=== PATIENT | female | born 1960 | race Caucasian/White ===

== ENCOUNTER 2020-08-27 14:27 | Outpatient (REF) | payer OTHER, SELFPAY ==
[2020-08-27 15:30] LABS: MANUAL DIFF FLAG NO
[2020-08-27 15:31] LABS: Basophils Percent Auto 0.4 % (0-2); Eosinophils Absolute Auto 0.1 X10*3/uL (0.0-0.4); Eosinophils Percent Auto 1.8 % (0-4); Hematocrit 38.1 % (37-47); Hemoglobin 12.5 g/dl (12.0-16.0); Imm Gran Abs Auto 0.02 X10*3/uL (0.00-0.03); Imm Gran Pct Auto 0.3 % (0.0-0.4); Lymphocytes Absolute Auto 2.3 X10*3/uL (1.2-4.9); Lymphocytes Percent Auto 32.7 % (20-40); Mean Corpuscular HGB Conc 32.8 g/dl (31.0-35.0); Mean Corpuscular Hemoglobin 30.9 pg (27.0-33.0); Mean Corpuscular Volume 94.3 fL (80-98); Mean Platelet Volume 10.8 fL (9.4-12.3); Monocytes Absolute Auto 0.6 X10*3/uL (0.1-1.2); Monocytes Percent Auto 8.3 % (2-11); Neutrophils Percent Auto 56.5 % (45-73); Platelet Count 238 X10*3/uL (160-400); Red Blood Count 4.04 X10*6/uL (4.20-5.50); Red Cell Distribution Width 12.8 % (11.0-16.0); White Blood Count 7.1 X10*3/uL (4.8-10.8)
[2020-08-27 15:32] LABS: Appearance Urine CLEAR; Color Urine YELLOW; Glucose Urine UA NEG (NEG); Leukocyte Esterase Urine NEG (NEG); Nitrite Urine NEG (NEG); PH 6.5 (5.0-8.0); Urine Blood NEG (NEG); Urine Ketones NEG (NEG); Urine Protein NEG (NEG-TRACE)
[2020-08-27 16:02] LABS: Anion Gap 9 (12-20); Blood Urea Nitrogen 21 mg/dL (9-16); Calcium 8.9 mg/dL (8.4-10.2); Carbon Dioxide 30 mmol/L (22-29); Chloride 104 mmol/L (96-108); Estimated Glomerular Filt Rate > 60; Glucose Random 78 mg/dL (60-115); Potassium 4.8 mmol/l (3.3-5.1); Sodium 138 mmol/L (135-145)
== END 2020-08-27 14:28 | disposition home or self-care (01) ==
LOC: HO.LAB 14:27
PROVIDERS: PCP Internal Medicine; Visit Provider Internal Medicine
DX: Z00.00 Encounter for general adult medical examination without abnormal findings (principal); R51.9 Headache, unspecified; N39.0 Urinary tract infection, site not specified; R10.9 Unspecified abdominal pain
CPT/HCPCS: 36415; 80048; 81003; 85025

== ENCOUNTER 2020-09-24 14:16 | Outpatient (REF) | payer OTHER, SELFPAY ==
[2020-09-24 14:33] LABS: COVID-19 Test Negative (Negative)
== END 2020-09-24 14:17 | disposition home or self-care (01) ==
LOC: HO.EMPCOV 14:16
PROVIDERS: Visit Provider Internal Medicine
DX: Z20.822 Contact with and (suspected) exposure to COVID-19 (principal)
CPT/HCPCS: 36415; 87635; C9803

== ENCOUNTER 2020-10-05 00:18 | Emergency (ER) | payer OTHER, SELFPAY ==
--- NOTE | ~2020-10-05 | CT_ITS ---
EXAMINATION: CT SOFT TISSUE NECK WITHOUT CONTRAST CLINICAL INFORMATION: Throat pain. COMPARISON: None TECHNIQUE: Helical imaging was performed in the axial plane with generation of coronal and sagittal reformatted images. This CT examination was performed using dose optimization techniques as appropriate, variously including the following: *Automated exposure control *Adjustment of mA and/or kV according to patient size (this includes techniques or standardized protocols for targeted exams where dose is matched to indication/reason for exam; i.e. extremities or head) *Use of iterative reconstruction technique DLP: 484 mGy-cm FINDINGS: Please note that this examination is extremely limited as no IV contrast was administered. No cervical adenopathy is identified. The parotid glands are homogeneous in attenuation. The submandibular glands are normal. No contour abnormality or pathologic enhancement is seen within the oral cavity or pharyngeal mucosal space. The laryngeal structures are normal. The parapharyngeal fat is preserved. The carotid sheath vasculature opacify normally. No extra mucosal soft tissue mass or fluid collection is seen. No retropharyngeal fluid collection is seen. The thyroid gland is normal. The superior mediastinum is unremarkable. The lung apices are clear. The mastoid air cells and visualized portions of the paranasal sinuses are well-aerated. The temporomandibular joints are normal. No periapical disease is identified. No osseous abnormalities are seen. The imaged portions of the brain parenchyma are unremarkable. There is mild disc height loss at C5/C6 and C6/C7 with mild anterior osteophyte formation. There are no demonstrable radiopaque foreign bodies. CT/CT soft tissue neck wo con IMPRESSION: Significantly limited study due to the lack of IV contrast. Please note that evaluation for inflammatory and infectious processes is significantly limited without IV contrast. No acute abnormalities are demonstrable, however. Specifically, there is no suggestion of prevertebral soft tissue swelling or retropharyngeal collection.
[2020-10-05 00:21] VITALS: BP 175/81; PULSE 71; RESP 18; TEMP 36.6; O2SAT 99; BMI 27.4
--- NOTE | 2020-10-05 01:28 | ED.URI ---
HPI - URI/Sore Throat General Chief Complaint: General Medical Stated Complaint: Sore throat Time Seen by Provider: 10/05/20 01:06 Source: patient Mode of arrival: ambulatory Limitations: no limitations History of Present Illness HPI Narrative: Patient been complaining of sore throat for last 2 weeks had COVID testing done on 09/24 was negative seen her PCP for give her amoxicillin and then took the course of Zithromax which is she still taking and still feeling pain in the throat feels pain feels pain when she swallows no fever no chills no change in voice no shortness of breath Related Data Previous Rx's Medication Instructions Recorded valacyclovir 1 gram tablet 1,000 mg PO Q8H 7 Days #21 tab 08/27/20 lidocaine 5 % topical ointment 1 appl TOPICAL BEDTIME #120 g 09/02/20 Allergies Allergy/AdvReac Type Severity Reaction Status Date / Time No Known Allergies Allergy Verified 08/27/20 10:57 Review of Systems Review of Systems: Yes all other systems are reviewed and are negative PMFSH Past Medical History Medical History Rotator cuff arthropathy of right shoulder Surgical History History of partial hysterectomy Family History Family History Mother No problems noted. Father No problems noted. Social History Social History Alcohol intake: never Smoking Status: Never smoker Use of substances other than those prescribed or required for medical reasons: No Advance Directives: No Advance Directives Information Provided: No Physical Exam Vital Signs: Vital Signs: Last Vital Signs Temp 97.8 F 10/05/20 00:21 Pulse 71 10/05/20 00:21 Resp 18 10/05/20 00:21 BP 175/81 H 10/05/20 00:21 Pulse Ox 99 10/05/20 00:21 Body Mass Index 27.4 Const: General: healthy appearing, comfortable and no acute distress Orientation/consciousness: patient oriented x3 HENMT: Head: Yes normal to inspection Ears: hearing grossly normal bilaterally, external ears normal and TM's normal bilaterally General nose exam: Normal external nose present Face and sinus: Yes normal facial exam Mouth: Normal oral and palatal mucosa present, oropharynx normal and moist mucous membranes Neck: Neck: Yes normal visual inspection, Yes full ROM, Yes no lymphadenopathy and Yes no JVD Thyroid: Thyroid normal Chest: Chest palpation & inspection: normal palpation of entire chest wall Resp: Effort & Inspection: normal respiratory effort Auscultation: clear to auscultation bilaterally, no crackles and no rales Cardio: Palpation: normal PMI Rate: regular rate Rhythm: regular rhythm Heart sounds: S1 normal heart sound present and S2 normal heart sound present GI: Inspection: Yes normal to inspection Palpation (GI): Soft to palpation and nontender Neuro: General: patient oriented x3 and no focal motor deficits Extrem: General: Yes normal to inspection, Yes no calf tenderness and No pedal edema Course Course Course Narrative: CT scan negative for any acute pathology patient advised to follow-up with ENT specialist MDM - URI/Sore Throat MDM Narrative Medical decision making narrative: Patient with sore throat clinically no signs of infection taken the course of antibiotic already rapid strep is negative patient still feel pain in the throat very anxious explain her that she need ENT evaluation will do CT scan to rule out any mass although very unlikely Differential Diagnosis Differential diagnosis: Likely upper respiratory infection Lab Data Attestation: I reviewed the patient's lab results. Labs: Lab Results 10/05/20 Range/Units 01:11 COVID-19 ([facility]) Negative (Negative) COVID-19 Clin Com See Note Discharge Plan Discharge Clinical Impression: Sore throat (viral) Patient Disposition: Home, Self-Care Instructions: Strep Throat (ED) Additional Instructions: Follow-up with ENT for further evaluation at this time there is no signs of infection Saline gargles Continue your Prilosec daily and keep your head elevated when you sleep Prescriptions: No Action valacyclovir 1 gram tablet 1,000 mg PO Q8H 7 Days Qty: 21 RF: 0 lidocaine 5 % ointment 1 appl topical BEDTIME Qty: 120 RF: 0 Referrals: Markel Perera [Physician] - 1 week Interventions: ED Discharge Assessment Last Done: 10/05/20 03:06 Discharge Date/Time: 10/05/20 03:06 Print Language: Slovak
[2020-10-05 01:34] LABS: COVID-19 Test Negative (Negative); IDNOW Serial# 9DD0AD1C
[2020-10-05] MEDS: Magnesium Hydrox/Alum Hydrox 30 ML ORAL.SUSP PO (02:16)
[2020-10-05] MEDS: Lidocaine HCl Viscous 2 % 15 ML SOLUTION MUCOUS MEM (02:16)
== END 2020-10-05 03:06 | disposition home or self-care (01) ==
PROVIDERS: Emergency Provider Internal Medicine; PCP Internal Medicine
DX: J02.9 Acute pharyngitis, unspecified (principal); Z20.822 Contact with and (suspected) exposure to COVID-19
CPT/HCPCS: 36415; 70490; 87071; 87635; 87880; 99284

== ENCOUNTER 2020-10-10 09:46 | Outpatient (REF) | payer OTHER, SELFPAY ==
--- NOTE | ~2020-10-10 | FL_ITS ---
EXAMINATION: FL BARIUM SWALLOW CLINICAL INFORMATION: Dysphagia. Reflux. COMPARISON: None TECHNIQUE: Barium swallow examination is performed using fluoroscopic evaluation in addition to multiple fluoroscopic spot views. The patient is imaged both upright and prone and using both thick and thin sulfate along with effervescent granules. Barium tablet was also administered. Fluoroscopy time: 1.8 minutes DAP: 14 Gycm2 Images: 61 FINDINGS: The swallowing mechanism is normal. No aspiration or penetration is seen. There is a prominent cricopharyngeus muscle seen making posterior impression on the lower cervical esophagus. Esophageal motility appeared normal with the patient in the upright position. There was abnormal esophageal motility with the patient in the LUO position with persistent stasis of barium in the esophagus. There is a very small sliding-type hiatal hernia. Mild gastroesophageal reflux was seen. No mass, stricture or evidence of esophagitis is seen. FL/FL barium swallow IMPRESSION: Prominent cricopharyngeus muscle. Abnormal esophageal motility with the patient in the LUO position with stasis of barium in the esophagus. Mild gastroesophageal reflux. Very small sliding-type hiatal hernia.
== END 2020-10-10 09:47 | disposition home or self-care (01) ==
LOC: HO.XRAY 09:46
PROVIDERS: Visit Provider Otolaryngology
DX: R13.10 Dysphagia, unspecified (principal); K21.9 Gastro-esophageal reflux disease without esophagitis
CPT/HCPCS: 74220

== ENCOUNTER → 2021-01-13 14:21 | Outpatient (REF) | payer OTHER, SELFPAY ==
--- NOTE | 2021-01-13 14:25 | ECG_ITS ---
Test Reason : PREOP Blood Pressure : / mmHG Vent. Rate : 066 BPM Atrial Rate : 066 BPM P-R Int : 150 ms QRS Dur : 092 ms QT Int : 396 ms P-R-T Axes : 049 047 036 degrees QTc Int : 415 ms Normal sinus rhythm Normal ECG No previous ECGs available Referred By: Wendy Nicole Electronically Signed By:MELVIN SHORE MD
== END ==
LOC: HO.CARD 14:21
PROVIDERS: PCP Internal Medicine; Visit Provider Internal Medicine
DX: Z01.818 Encounter for other preprocedural examination (principal)
CPT/HCPCS: 93005

== ENCOUNTER 2021-01-14 14:19 | Outpatient (REF) | payer OTHER, SELFPAY ==
[2021-01-14 15:02] LABS: MANUAL DIFF FLAG NO
[2021-01-14 15:06] LABS: Basophils Percent Auto 0.4 % (0-2); Eosinophils Absolute Auto 0.1 X10*3/uL (0.0-0.4); Eosinophils Percent Auto 2.1 % (0-4); Hematocrit 36.6 % (37-47); Hemoglobin 12.1 g/dl (12.0-16.0); Imm Gran Abs Auto 0.01 X10*3/uL (0.00-0.03); Imm Gran Pct Auto 0.1 % (0.0-0.4); Lymphocytes Absolute Auto 2.3 X10*3/uL (1.2-4.9); Lymphocytes Percent Auto 33.6 % (20-40); Mean Corpuscular HGB Conc 33.1 g/dl (31.0-35.0); Mean Corpuscular Hemoglobin 30.6 pg (27.0-33.0); Mean Corpuscular Volume 92.4 fL (80-98); Mean Platelet Volume 11.2 fL (9.4-12.3); Monocytes Absolute Auto 0.6 X10*3/uL (0.1-1.2); Monocytes Percent Auto 8.8 % (2-11); Neutrophils Absolute Auto 3.7 X10*3/uL (2.0-8.3); Platelet Count 228 X10*3/uL (160-400); Red Blood Count 3.96 X10*6/uL (4.20-5.50); Red Cell Distribution Width 13.4 % (11.0-16.0); White Blood Count 6.8 X10*3/uL (4.8-10.8)
[2021-01-14 15:28] LABS: Alanine Aminotransferase 16 U/L (0-31); Albumin Level 4.2 g/dL (3.5-5.0); Alkaline Phosphatase 79 U/L (39-117); Anion Gap 13 (12-20); Aspartate Amino Transferase 17 U/L (5-31); Bilirubin Total 1.3 mg/dL (0.0-1.0); Blood Urea Nitrogen 17 mg/dL (9-16); Calcium 9.3 mg/dL (8.4-10.2); Carbon Dioxide 26 mmol/L (22-29); Chloride 105 mmol/L (96-108); Estimated Glomerular Filt Rate > 60; Glucose Fasting 89 mg/dL (60-99); Potassium 4.6 mmol/L (3.3-5.1); Sodium 139 mmol/L (135-145); Total Protein 6.8 g/dL (6.5-8.0)
== END 2021-01-14 14:20 | disposition home or self-care (01) ==
LOC: HO.LAB 14:19
PROVIDERS: PCP Internal Medicine; Visit Provider Internal Medicine
DX: Z01.818 Encounter for other preprocedural examination (principal)
CPT/HCPCS: 36415; 80053; 85025

== ENCOUNTER 2021-02-02 06:09 | Day surgery (SDC) | payer OTHER, SELFPAY ==
[2021-01-20 14:07] VITALS: BMI 26.9
--- NOTE | 2021-01-28 16:33 | MHC.SHP ---
Pre-Procedural Eval Section A The patient is an INPATIENT: No The History & Physical has been completed within 30 days and I have reviewed it.: Yes Section B Chief Complaint: cataract Allergies: Allergies Allergy/AdvReac Type Severity Reaction Status Date / Time No Known Allergies Allergy Verified 01/20/21 13:52 Plan Diagnosis/Plan: Unchanged I have reviewed the history and physical and performed a pertinent physical examination on my patient. No changes have occurred unless specified.
--- NOTE | 2021-01-30 09:01 | HO.ANESPROP2 ---
Documented by User: Niru Pineda 01/30/21 09:02 HPI - Anesthesia Eval Consult details Narrative: 60yo F for Right Cataract Extraction IOL Insertion PCP Cleared No prev cataract on record PMFSH Active Problems Active Problems: All Active Problems (Updated 01/20/21 @ 13:52 by Tessa Goldberg) Flank pain (Acute) Shingles (Acute) Pre-op evaluation (Acute) Past Medical History Medical History Arthritis Back pain GERD (gastroesophageal reflux disease) Pre-op evaluation Scoliosis Family History Family History Mother Breast cancer Father Stroke Surgical History Surgical History History of foot surgery History of partial hysterectomy Hx of colonoscopy Hx of repair of right rotator cuff Hx of thumb surgery Social History Social History Are you a primary primary care pediatrician to a significant other at home: No Do you presently have visiting nurse or other home services: No Alcohol intake: never Use of substances other than those prescribed or required for medical reasons: No Have you been hit, kicked, punched, or otherwise hurt by someone within the past year? If so, by whom?: No Are you DNR?: No Advance Directives: No Advance Directives Information Provided: No Advance Directives on File: No Recently lost weight without trying: No How much weight loss: 34pounds or more Eating poorly because of decreased appetite: No Nutrition screen score: 4 Nutrition Risks: No Nutritional Risk Patient : No Meds Allergies Allergy/AdvReac Type Severity Reaction Status Date / Time No Known Allergies Allergy Verified 01/20/21 13:52 Home Medications Medication Instructions Recorded Confirmed Last Taken Type naltrexone 8 mg-bupropion 90 mg 1 tab PO QAM 01/15/21 01/20/21 Unknown History tablet,extended release omeprazole 20 mg PO DAILY PRN 01/20/21 02/02/21 02/02/21 History Exam Exam Date and Time: January 30, 2021 0901 Height,Weight and Vital Signs: Height 5 ft 6 in Weight 75.75 kg Assessment and Plan Assessment Anesthesia Assessment: Chart Reviewed Documented by User: Dexter Bustos 02/02/21 07:08 PMFSH Past Medical History Medical History Arthritis Back pain GERD (gastroesophageal reflux disease) Pre-op evaluation Scoliosis Family History Family History Mother Breast cancer Father Stroke Surgical History Surgical History History of foot surgery History of partial hysterectomy Hx of colonoscopy Hx of repair of right rotator cuff Hx of thumb surgery Social History Social History Are you a primary primary care pediatrician to a significant other at home: No Do you presently have visiting nurse or other home services: No Alcohol intake: never Use of substances other than those prescribed or required for medical reasons: No Have you been hit, kicked, punched, or otherwise hurt by someone within the past year? If so, by whom?: No Are you DNR?: No Advance Directives: No Advance Directives Information Provided: No Advance Directives on File: No Recently lost weight without trying: No How much weight loss: 34pounds or more Eating poorly because of decreased appetite: No Nutrition screen score: 4 Nutrition Risks: No Nutritional Risk Patient : No Meds Allergies Allergy/AdvReac Type Severity Reaction Status Date / Time No Known Allergies Allergy Verified 01/20/21 13:52 Home Medications Medication Instructions Recorded Confirmed Last Taken Type naltrexone 8 mg-bupropion 90 mg 1 tab PO QAM 01/15/21 01/20/21 Unknown History tablet,extended release omeprazole 20 mg PO DAILY PRN 01/20/21 02/02/21 02/02/21 History Exam Airway Mallampati Class: II TM Dist: >3cm Neck ROM: Full Loose/Missing/Broken Teeth: Yes (o missing but poor dentition) Heart: rrr+[id number] Lungs: cta b/l Assessment and Plan Assessment Anesthesia Assessment: Anesthesia Plan Discussed, PAT Visit and Chart Reviewed Final Anesthetic Review NPO: Yes ASA Class: II Final Preanesthetic Review: No Changes in Pt Med Stat, Meds/Allgs Chart Reviewed, Consent Obtained/Reviewed and Anes Risks/Benef Reviewed Patient Risk: Low Procedure Risk: Low Assessment/Block/Sedation in SS: Assess/Block/Sedation-SS Anesthetic Plan Anesthetic Plan: MAC: and Agree w/ Assess. and Plan Disposition: Standard PACU
[2021-02-02] MEDS: Tetracaine HCl/PF 0.5% Oph Sol 4 ML DROPS 1 DROP EYE-RIGHT (06:29)
[2021-02-02] MEDS: Tropicamide 1 % Ophth Sol 3 ML BTL 1 DROP EYE-RIGHT ×3 (06:30→06:35)
[2021-02-02] MEDS: Phenylephrine HCL 2.5% Oph SoL 2 ML BOTTLE 1 DROP EYE-RIGHT ×3 (06:30→06:35)
[2021-02-02 06:31] VITALS: BP 126/71; PULSE 18; RESP 69; TEMP 36.1; O2SAT 98
--- NOTE | 2021-02-02 07:02 | HO.PNOPHT ---
Ophthalmology Procedure Procedure Date of Service: 02/02/21 Ophthalmology Viscoelastic: Healannamaria Pachecot Dual Pack Pro Ophthalmology Lenses: TECVICTORINO [id number] (20) Procedure Notes: PREOPERATIVE DIAGNOSIS: Decreased visual acuity right eye secondary to cataract POSTOPERATIVE DIAGNOSIS: Same PROCEDURE: Right cataract extraction with intraocular lens insertion SURGEON: Catracho Ward M.D. ANESTHESIA: Topical/MAC ESTIMATED BLOOD LOSS: None COMPLICATIONS: None After obtaining informed consent, the patient was brought to the operating room suite and placed in the supine position. After adequate sedation per anesthesia, topical drops of Tetracaine were given to the right eye. The eye was then prepped and draped in the usual sterile fashion. The operating room microscope was then positioned over the operative eye and a lid speculum placed. A paracentesis was created. Viscoelastic was then instilled into the anterior chamber. A three plane incision was then created temporally, utilizing a 2.85 mm keratome. Capsulotomy forceps were then utilized to create a circular tear capsulotomy. Hydrodissection and hydrodelineation were carried out until adequate mobilization of the nucleus occurred. Phacoemulsification was then utilized to remove the dense central nucleus followed by removal of the cortical material utilizing the automated aspiration irrigation unit. Viscoelastic was instilled into the posterior capsular bag followed by placement of a posterior chamber intraocular lens without difficulty. The residual Viscoelastic was then removed utilizing the automated IA machine. The wound was checked and found to be watertight. The patient tolerated the procedure well and the lid speculum was removed. Intracameral injection of Vigamox 0.1 mL followed by a subtenon injection of Kenalog-40 0.2 mL were administered. The patient will be seen in the a.m.
[2021-02-02 07:56] VITALS: BP 156/91; PULSE 67; RESP 16; TEMP 36.1; O2SAT 100
== END 2021-02-02 07:59 | disposition home or self-care (01) ==
PROVIDERS: PCP Internal Medicine; Visit Provider Ophthalmology
PROC: (CPT 66985; principal; 2021-02-02 07:30)
DX: H25.11 Age-related nuclear cataract, right eye (principal); H54.7 Unspecified visual loss; Z79.899 Other long term (current) drug therapy
CPT/HCPCS: 66984; J2250; J3010; J3300; V2632

== ENCOUNTER 2021-02-11 13:40 | Outpatient (REF) | payer OTHER, SELFPAY ==
--- NOTE | ~2021-02-11 | MM_ITS ---
EXAMINATION: MM SCREENING DIGITAL BREAST TOMOSYNTHESIS, BILATERAL CLINICAL INFORMATION: Screening. Asymptomatic. The lifetime risk of breast cancer based on the Tyrer-Cuzick Model is 15%. COMPARISON: Mammography: 10/11/2018, 07/13/2017, 11/27/2015, 01/09/2014. TECHNIQUE: Digital breast tomosynthesis is performed in both the craniocaudal and mediolateral oblique views along with computer-aided detection (CAD). Synthesized 2D images are generated from the tomosynthesis. FINDINGS: There are scattered areas of fibroglandular density (ACR BI-RADS breast composition Category b). The left breast shows no developing density or interval mass or architectural abnormality. There are fine grouped calcifications central 3:00 position mid depth which appear increased on the MLO view and are difficult to discern on the CC view. Patient will be recalled for additional magnification views. The right breast has asymmetric density anterior 4:00 position possibly related to chronic duct ectasia similar to remote mammography. Patient will be recalled for additional imaging to fully characterize. Remainder of the right breast shows no interval mass or architectural abnormality or developing density. There are no abnormal calcifications on the right. The bilateral axilla and skin contours are unremarkable. MM/MM tomosynthesis screening BI IMPRESSION: 1. Right: Asymmetric density anterior 4:00 position possibly related to chronic duct ectasia. 2. Left: Calcifications central 3:00 mid depth. ASSESSMENT: BI-RADS 0: Incomplete - Need Additional Imaging Evaluation RECOMMENDATION: 1. Right: Additional views of the right breast (3D spot CC, 3D spot ML). Targeted ultrasound if warranted after review of the additional views. 2. Left: Additional views of the left breast (Magnification CC and Magnification ML). 3. Radiology department staff will contact the patient for additional imaging. This patient's information was entered into a reminder system with a target due date for their next mammogram.
== END 2021-02-11 13:41 | disposition home or self-care (01) ==
LOC: HO.MAMMO 13:40
PROVIDERS: Visit Provider Internal Medicine
DX: Z12.31 Encounter for screening mammogram for malignant neoplasm of breast (principal)
CPT/HCPCS: 77063; 77067

== ENCOUNTER 2021-02-23 10:50 | Outpatient (REF) | payer OTHER, SELFPAY ==
--- NOTE | ~2021-02-23 | MM_ITS ---
EXAMINATION: MM DIAGNOSTIC DIGITAL BREAST TOMOSYNTHESIS, BILATERAL CLINICAL INFORMATION: Right retroareolar density. Left microcalcifications. COMPARISON: Mammography: February 11, 2021 and studies dating back to January 20, 2010. TECHNIQUE: Digital breast tomosynthesis is performed in both the craniocaudal and mediolateral oblique views along with computer-aided detection (CAD). Synthesized 2D images are generated from the tomosynthesis. Spot magnification films of the left breast in craniocaudal and 90 degree mediolateral views.. Spot compression views of the right breast in craniocaudal and 90 degree mediolateral views. Targeted right breast ultrasound. FINDINGS: There are scattered areas of fibroglandular density (ACR BI-RADS breast composition Category b). Spot compression views of the anterior aspect of the right breast do not demonstrate any suspicious abnormal dominant mass. Ultrasound retroareolar region of the right breast did not demonstrate any abnormal cystic or solid masses. No region of abnormal distal sound shadowing appreciated. Spot magnification views of the left breast demonstrate indeterminate grouping of calcifications about the upper outer aspect which do not layer on 90 degree mediolateral views. Stereotactic core biopsy of these calcifications recommended. Results are discussed with the patient at time of visit. Breast center patient navigator notified referring physician's office of the above recommendation. MM/MM tomosynthesis diagnostic BI IMPRESSION: Recommend stereotactic core biopsy left breast calcifications. No suspicious right breast findings. ASSESSMENT: BI-RADS 4: Suspicious RECOMMENDATION: Left breast stereotactic core biopsy. This patient's information was entered into a reminder system with a target due date for their next mammogram.
--- NOTE | ~2021-02-23 | US_ITS ---
EXAMINATION: US DIAGNOSTIC ULTRASOUND BREAST, RIGHT CLINICAL INFORMATION: Right retroareolar density. COMPARISON: February 11, 2021 and studies dating back to August 11, 2012. TECHNIQUE: Ultrasound of the breast is performed with real-time polanco scale imaging and color Doppler. FINDINGS: There is no focal suspicious finding. There is no solid mass, architectural abnormality, duct ectasia, or edema in the soft tissue planes. Results are discussed with the patient at time of visit. US/US breast RT limited IMPRESSION: No specific ultrasound abnormality to suggest malignancy of the right breast. ASSESSMENT: BI-RADS 4: Suspicious Left breast for stereotactic core biopsy as described in mammographic report. BI-RADS 1 negative for right breast. RECOMMENDATION: Stereotactic core biopsy calcifications of the left breast. This patient's information was entered into a reminder system with a target due date for their next mammogram.
== END 2021-02-23 10:51 | disposition home or self-care (01) ==
LOC: HO.MAMMO 10:50
PROVIDERS: Visit Provider Internal Medicine
DX: R92.2 Inconclusive mammogram (principal); R92.1 Mammographic calcification found on diagnostic imaging of breast
CPT/HCPCS: 76642; 77062; 77066

== ENCOUNTER → 2021-03-03 08:31 | Outpatient (BNVA) | payer OTHER, SELFPAY | PROVIDERS: PCP Internal Medicine; Visit Provider Surgery | DX: R92.8 Other abnormal and inconclusive findings on diagnostic imaging of breast (principal) ==

== ENCOUNTER 2021-03-04 08:19 | Outpatient (REF) | payer OTHER, SELFPAY ==
--- NOTE | ~2021-03-04 | MM_ITS ---
EXAMINATION: STEREOTACTIC TOMOSYNTHESIS-GUIDED VACUUM-ASSISTED BREAST BIOPSY, LEFT SPECIMEN RADIOGRAPH, LEFT POST PROCEDURE DIGITAL MAMMOGRAM, LEFT CLINICAL INFORMATION: Indeterminate calcifications lateral aspect. COMPARISON: February 23, 2021 and studies dating back to August 11, 2012. TECHNIQUE/PROCEDURE: Informed consent was obtained from the patient after discussion of the benefits, risks, and alternatives to biopsy today. Patient appeared to understand. Gave opportunity for questions. Patient signed consent form. BIOPSY TABLE: [employer] Affirm Prone Biopsy System. LESION: Grouping of calcifications. LOCAL ANESTHESIA: 10 mL 1% lidocaine; 20 mL 1% lidocaine with epinephrine. DERMATOTOMY: Single skin rosio dermatotomy performed. NEEDLE: [employer] Eviva 9-gauge vacuum assisted core biopsy device. APPROACH: Lateral. TARGETING: Digital breast tomosynthesis used for targeting. CORES: 15. CLIP: [employer] Sec[employer]Mark Buckle-shaped marker. SPECIMEN RADIOGRAPH: Specimen radiograph is taken in separate room using digital mammography. The index calcifications are in the excised cores. POST PROCEDURE UNILATERAL DIGITAL MAMMOGRAM: The post biopsy mammogram is performed in separate room using separate digital mammography equipment from the biopsy procedure. 2 views are obtained. There are scattered areas of fibroglandular density (breast composition category: b). The clip marker is in position. The calcifications are markedly decreased at the biopsy site. No gross hematoma. The patient tolerated the procedure well. No immediate complications. Home instructions reviewed with the patient. Final pathology results are pending. MM/MM stereotactic biopsy LT IMPRESSION: 1. Digital tomosynthesis-guided core biopsy left breast with clip placement. 2. Specimen radiograph taken and post procedure mammogram. There is satisfactory positioning of the biopsy clip. 3. Final pathology results pending. An addendum report will be issued.
== END 2021-03-04 08:20 | disposition home or self-care (01) ==
LOC: HO.MAMMO 08:19
PROVIDERS: Visit Provider Surgery
DX: R92.8 Other abnormal and inconclusive findings on diagnostic imaging of breast (principal)
CPT/HCPCS: 19081; 88305; A4648

== ENCOUNTER 2021-11-25 13:48 | Outpatient (REF) | payer OTHER, SELFPAY ==
--- NOTE | ~2021-11-25 | MM_ITS ---
EXAMINATION: MM DIAGNOSTIC DIGITAL BREAST TOMOSYNTHESIS, BILATERAL CLINICAL INFORMATION: Due for yearly. Benign left stereotactic biopsy for calcifications 03/04/2021 (benign breast parenchyma with scattered coarse calcifications, fibrocystic changes, apocrine metaplasia, usual ductal hyperplasia, columnar cell change; no atypia). The lifetime risk of breast cancer based on the Tyrer-Cuzick Model is 14%. COMPARISON: Mammography: 03/04/2021, 04/25/2021, 02/11/2021, 10/11/2018; right breast ultrasound 02/23/2021 TECHNIQUE: Digital breast tomosynthesis is performed in both the craniocaudal and mediolateral oblique views along with computer-aided detection (CAD). Synthesized 2D images are generated from the tomosynthesis. Additional views are obtained: Magnification left CC, magnification left ML, spot right CC, spot right ML x2. FINDINGS: There are scattered areas of fibroglandular density (ACR BI-RADS breast composition Category b). Breast tissue composition borders on heterogeneously dense. Parenchymal pattern is similar to prior studies. There is biopsy clip marker left breast mid upper outer quadrant with some minor scarring at the biopsy site. The calcifications have been almost completely removed with some residual punctate round calcifications remaining. There are no suspicious calcifications. Neither breast shows developing density or interval architectural abnormality or significant mass. The axilla and skin contours are unremarkable. Results are provided to the patient at time of visit by the technologist. MM/MM tomosynthesis diagnostic BI IMPRESSION: No mammographic evidence of malignancy. ASSESSMENT: BI-RADS 2: Benign RECOMMENDATION: Routine annual mammography screening. This patient's information was entered into a reminder system with a target due date for their next mammogram.
== END 2021-11-25 13:49 | disposition home or self-care (01) ==
LOC: HO.MAMMO 13:48
PROVIDERS: Visit Provider Internal Medicine
DX: R92.1 Mammographic calcification found on diagnostic imaging of breast (principal)
CPT/HCPCS: 77062; 77066

== ENCOUNTER 2022-01-10 11:04 | Outpatient (REF) | payer OTHER, SELFPAY ==
[2022-01-10 11:22] LABS: COVID-19 Test Positive (Negative)
== END 2022-01-10 11:05 | disposition home or self-care (01) ==
LOC: HO.LAB 11:04
PROVIDERS: PCP Internal Medicine; Visit Provider Internal Medicine
DX: Z20.822 Contact with and (suspected) exposure to COVID-19 (principal)
CPT/HCPCS: 87635

== ENCOUNTER 2022-10-25 05:51 | Day surgery (SDC) | payer OTHER, SELFPAY ==
[2022-10-19 15:06] VITALS: BMI 27.2
[2022-10-19 15:38] LABS: Hematocrit 39.8 % (37.0-47.0); Hemoglobin 12.9 g/dl (12.0-16.0); Mean Corpuscular HGB Conc 32.4 g/dl (31.0-35.0); Mean Corpuscular Hemoglobin 29.5 pg (27.0-33.0); Mean Corpuscular Volume 90.9 fL (80.0-98.0); Platelet Count 274 X10*3/uL (160-400); Red Blood Count 4.38 X10*6/uL (4.20-5.50); White Blood Count 7.8 X10*3/uL (4.8-10.8)
[2022-10-19 16:04] LABS: Anion Gap 8 (12-20); Blood Urea Nitrogen 20 mg/dL (9-16); Carbon Dioxide 31 mmol/L (22-29); Chloride 105 mmol/L (96-108); Creatinine Clr Calc Pharmacy 77.2; Estimated Glomerular Filt Rate > 60; Glucose Random 94 mg/dL (60-115); Sodium 139 mmol/L (135-145)
[2022-10-19 16:22] LABS: TSH reflex Free T4 2.05 uIU/mL (0.32-4.0)
--- NOTE | 2022-10-21 08:58 | MHC.SHP ---
Pre-Procedural Eval Section A Date of Service: 10/21/22 The patient is an INPATIENT: No Changes since office visit: No Cold of Flu in the past 2 weeks, No New Medical Problems, No Changes in Medication and No Patient answered all questions The History & Physical has been completed within 30 days and I have reviewed it.: Yes Section B Chief Complaint: Age-related nuclear cataract, left eye Allergies: Allergies Allergy/AdvReac Type Severity Reaction Status Date / Time No Known Allergies Allergy Verified 10/13/22 13:53 Plan Diagnosis/Plan: Unchanged I have reviewed the history and physical and performed a pertinent physical examination on my patient. No changes have occurred unless specified. Time Spent With Patient Time: Total time managing care of this patient today ____ minutes.
[2022-10-25 06:19] VITALS: BP 142/80; PULSE 68; RESP 15; TEMP 36.3; O2SAT 99
[2022-10-25] MEDS: Tetracaine HCl/PF 0.5% Oph Sol 4 ML DROPS 1 DROP EYE-LEFT (06:23)
[2022-10-25] MEDS: Cyclopentolate 1 % Ophth Sol 2 ML DRPBTL 1 DROP EYE-LEFT ×3 (06:25→06:38)
[2022-10-25] MEDS: Tropicamide 1 % Ophth Sol 3 ML BTL 1 DROP EYE-LEFT ×3 (06:26→06:40)
[2022-10-25] MEDS: Ketorolac Tromethamine 0.5% Op 5 ML DROPS 1 DROP EYE-LEFT ×3 (06:29→06:41)
[2022-10-25] MEDS: Phenylephrine HCL 2.5% Oph SoL 2 ML BOTTLE 1 DROP EYE-LEFT ×3 (06:30→06:43)
[2022-10-25] MEDS: Lactated Ringers 500 ML 50 ML IV (06:31)
--- NOTE | 2022-10-25 07:04 | P.CONAN_ITS ---
[facility] Active Problems Active Problems: All Active Problems (Updated 03/03/21 @ 08:08 by Williams Juan MD) Flank pain (Acute) Shingles (Acute) Abnormal mammogram of left breast (Acute) Breast mass (Acute) Pre-op evaluation (Acute) Past Medical History Medical History Arthritis Back pain Breast mass GERD (gastroesophageal reflux disease) Pre-op evaluation Scoliosis Family History Family History Mother Breast cancer Father Stroke Family history of problems with anesthesia: No Surgical History Surgical History History of foot surgery History of partial hysterectomy Hx of colonoscopy Hx of repair of right rotator cuff Hx of right cataract extraction Hx of thumb surgery History of Problems with Anesthesia: No Social History Social History Housing: House Are you a primary child caregiver private home to a significant other at home: No Do you presently have visiting nurse or other home services: No Alcohol intake: never Patient Tobacco Use Status: Never used Tobacco Tobacco use type: Cigarette Use of substances other than those prescribed or required for medical reasons: No Have you been hit, kicked, punched, or otherwise hurt by someone within the past year? If so, by whom?: No Are you DNR?: No Advance Directives: No Advance Directives Information Provided: Yes (brochure mailed) Advance Directives on File: No Recently lost weight without trying: No Nutrition Risks: No Nutritional Risk service: No Current occupational status: employed Meds Allergies Allergy/AdvReac Type Severity Reaction Status Date / Time No Known Allergies Allergy Verified 10/25/22 06:15 Active Medications: Current Medications Lactated Ringer's (Lr) 500 mls @ 50 mls/hr IV .Q10H TIFFANI Stop: 10/25/22 16:14 Last Admin: 10/25/22 06:31 Dose: 50 mls/hr Povidone Iodine (Povidone Iodine 5 % Ophth Soln 30 Ml Bottle) 1 appl EYE-LEFT PREOP PRN PRN Reason: Pre-Op Surgical Implant Prophy Home Medications Medication Instructions Recorded Confirmed Last Taken Type naltrexone 8 mg-bupropion 90 mg 1 tab PO QAM 01/15/21 10/19/22 Unknown History tablet,extended release (Contrave) omeprazole 20 mg capsule,delayed 20 mg PO DAILY PRN Acid Reflux 01/20/21 10/25/22 10/25/22 05:00 History release Exam Exam Date and Time: October 25, 2022 0704 Height,Weight and Vital Signs: Height 5 ft 6 in Weight 76.657 kg Last Vital Signs Temp 97.3 F 10/25/22 06:19 Pulse 68 10/25/22 06:19 Resp 15 10/25/22 06:19 BP 142/80 H 10/25/22 06:19 Pulse Ox 99 10/25/22 06:19 O2 Del Method 10/25/22 06:19 Pertinent Lab Results Pertinent Lab Results: Laboratory Tests 10/19/22 10/19/22 14:55 14:55 WBC 7.8 RBC 4.38 Hgb 12.9 Hct 39.8 MCV 90.9 MCH 29.5 MCHC 32.4 RDW 13.0 Plt Count 274 MPV 11.0 Absolute Nucleated RBC 0.000 Nucleated RBC % (auto) 0.0 Sodium 139 Potassium 5.0 Chloride 105 Carbon Dioxide 31 H Anion Gap 8 L BUN 20 H Creatinine 0.80 Estim Creat Clear Calc 77.2 Estimated GFR > 60 Random Glucose 94 Calcium 9.0 TSH 2.05 Airway Mallampati Class: II TM Dist: >3cm Neck ROM: Full Heart: rrr Lungs: cta bl Assessment and Plan Assessment Anesthesia Assessment: Anesthesia Plan Discussed and Chart Reviewed Final Anesthetic Review Family History of Problems with Anesthesia: No History of Problems with Anesthesia: No NPO: Yes ASA Class: II Final Preanesthetic Review: No Changes in Pt Med Stat, Meds/Allgs Chart Reviewed and Consent Obtained/Reviewed Patient Risk: Intermediate Procedure Risk: Intermediate Anesthetic Plan Anesthetic Plan: MAC: Disposition: Standard PACU
--- NOTE | 2022-10-25 07:23 | HO.PNOPHT ---
Ophthalmology Procedure Procedure Date of Service: 10/25/22 Ophthalmology Viscoelastic: Healannamaria Duet Dual Pack Pro Ophthalmology Lenses: TECVICTORINO [id number] (21) Procedure Notes: PREOPERATIVE DIAGNOSIS: Decreased visual acuity left eye secondary to cataract POSTOPERATIVE DIAGNOSIS: Same PROCEDURE: Left cataract extraction with intraocular lens insertion SURGEON: Catracho Ward M.D. ANESTHESIA: Topical/MAC ESTIMATED BLOOD LOSS: None COMPLICATIONS: None After obtaining informed consent, the patient was brought to the operation room suite and placed in the supine position. After adequate sedation per anesthesia, topical drops of Tetracaine were given to the left eye. The eye was then prepped and draped in the usual sterile fashion. The operating room microscope was then positioned over the operative eye and a lid speculum placed. A paracentesis was created. Viscoelastic was then instilled into the anterior chamber. A three plane incision was then created temporally, utilizing a 2.85 mm keratome. Capsulotomy forceps were then utilized to create a circular tear capsulotomy. Hydrodissection and hydrodelineation were carried out until adequate mobilization of the nucleus occurred. Phacoemulsification was then utilized to remove the dense central nucleus followed by removal of the cortical material utilizing the automated aspiration irrigation unit. Viscoat elastic was instilled into the posterior capsular bag followed by placement of a posterior chamber intraocular lens without difficulty. The residual Viscoat elastic was then removed utilizing the automated IA machine. The wound was check and found to be watertight. The patient tolerated the procedure well and the lid speculum was removed. Intracameral injection of Vigamox 0.1 mL followed by a subtenon injection of Kenalog-40 0.2 mL were administered. The patient will be seen in the a.m.
[2022-10-25 07:59] VITALS: BP 155/74; PULSE 71; RESP 16; TEMP 35.9; O2SAT 100
== END 2022-10-25 08:01 | disposition home or self-care (01) ==
PROVIDERS: Nurse Practitioner Family; PCP Internal Medicine; Visit Provider Ophthalmology
PROC: (CPT 66985; principal; 2022-10-25 07:30)
DX: H25.12 Age-related nuclear cataract, left eye (principal); H52.4 Presbyopia; Z96.1 Presence of intraocular lens; K21.9 Gastro-esophageal reflux disease without esophagitis; M19.90 Unspecified osteoarthritis, unspecified site; Z79.899 Other long term (current) drug therapy
CPT/HCPCS: 66984; 36415; 80048; 84443; 85027; J2250; J3010; J3301; V2632

== ENCOUNTER 2023-03-16 13:13 | Outpatient (REF) | payer OTHER, SELFPAY ==
--- NOTE | ~2023-03-16 | MM_ITS ---
EXAMINATION: MM SCREENING DIGITAL BREAST TOMOSYNTHESIS, BILATERAL CLINICAL INFORMATION: Screening. Asymptomatic. The lifetime risk of breast cancer based on the Tyrer-Cuzick Model is 14.7%. COMPARISON: Mammography: 11/25/2021, 03/04/2021, 03/25/2021, 02/11/2021, 10/11/2018. TECHNIQUE: Digital breast tomosynthesis is performed in both the craniocaudal and mediolateral oblique views along with computer-aided detection (CAD). Synthesized 2D images are generated from the tomosynthesis. FINDINGS: There are scattered areas of fibroglandular density (ACR BI-RADS breast composition Category b). There are no suspicious masses, suspicious grouped calcifications, or areas of architectural distortion. Post benign biopsy clip is seen in in the lateral slightly upper left breast, middle one third. The overall parenchymal pattern is unchanged. MM/MM tomosynthesis screening BI IMPRESSION: No mammographic evidence of malignancy. ASSESSMENT: BI-RADS BI-RADS 2 - Benign Findings RECOMMENDATION: Routine annual mammography screening. 1 year F/U This examination should not preclude the clinical evaluation of a suspicious palpable abnormality. This patient's information was entered into a reminder system with a target due date for their next mammogram.
== END 2023-03-16 13:14 | disposition home or self-care (01) ==
LOC: HO.MAMMO 13:13
PROVIDERS: PCP Internal Medicine; Visit Provider Internal Medicine
DX: Z12.31 Encounter for screening mammogram for malignant neoplasm of breast (principal)
CPT/HCPCS: 77063; 77067

== ENCOUNTER → 2023-03-16 13:30 | Outpatient (BNV) | payer OTHER, SELFPAY | PROVIDERS: PCP Internal Medicine; Visit Provider Radiology Diagnostic Radiology | DX: Z12.31 Encounter for screening mammogram for malignant neoplasm of breast (principal) | CPT/HCPCS: 77063; 77067 ==

== ENCOUNTER 2023-09-29 11:44 | Outpatient (REF) | payer OTHER, SELFPAY ==
--- NOTE | ~2023-09-29 | XR_ITS ---
EXAMINATION: XR PELVIS CLINICAL INFORMATION: Pain. COMPARISON: None available. TECHNIQUE: AP view of the pelvis. FINDINGS: No acute fracture or malalignment. Mild degenerative osteoarthritis in the hips. SI joints are symmetric. Pubic symphysis and pelvic ring are maintained. Small pelvic phleboliths. No significant soft tissue abnormality. XR/XR pelvis 1-2V IMPRESSION: No acute fracture or malalignment. Mild degenerative osteoarthritis in the hips.
== END 2023-09-29 11:45 | disposition home or self-care (01) ==
LOC: HO.HOSX 11:44
PROVIDERS: Visit Provider Orthopaedic Surgery
DX: M16.0 Bilateral primary osteoarthritis of hip (principal); M54.50 Low back pain, unspecified
CPT/HCPCS: 20610; 72170

== ENCOUNTER 2023-09-29 13:20 | Outpatient (AMB) | payer OTHER, SELFPAY ==
--- NOTE | 2023-09-29 13:26 | MHC.OFFVIS ---
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 Patient reports that she has pain in the buttock for many years that has worsened over the last 6 weeks. 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 She complains of pain with daily activity, and would like to discuss possible injections. She reports having pain primarily in her buttocks for several years, but has worsened in the last few weeks. [facility] Medical History (Updated 09/30/23 @ 08:47 by Javan Kamara MD) Breast mass Arthritis Back pain Scoliosis GERD (gastroesophageal reflux disease) Pre-op evaluation Surgical History Hx of right cataract extraction Hx of colonoscopy History of foot surgery Hx of thumb surgery Hx of repair of right rotator cuff History of partial hysterectomy Family History Mother Breast cancer Father Stroke Social History Housing: House Are you a primary post acute care nurse practitioner to a significant other at home: No Do you presently have visiting nurse or other home services: No Alcohol intake: never Patient Tobacco Use Status: Never used Tobacco Tobacco use type: Cigarette service: No Current occupational status: employed Female Reproductive History Menstrual Age of Menarche: 18 Review of Systems Const All systems reviewed & are unremarkable except as noted in HPI and below Physical Exam Vital Signs: BMI result Body Mass Index 27.3 Const General: no acute distress, alert and awake Orientation/consciousness: patient oriented x3 HEENT Head: Yes normocephalic and Yes atraumatic Eyes EOM: EOMs intact bilaterally Resp Effort & Inspection: normal respiratory effort and able to speak in complete sentences Cardio Jugular venous distension: no JVD Skin General skin exam: turgor normal Rashes: no rashes Neuro General: patient oriented x3 Extrem Other: TTP over SI joint, piriformis fossa and greater trochanter. No groin pain with hip ROM neg impingement Psych Appearance: grossly normal Affect: normal affect Attitude: cooperative Office Procedures Joint Injection/Drain Joint Injection/Drain Details: Injected 1 mL of Decadron and 3 mL 1% lidocaine and 3 mL of 0.25% Marcaine. Site was prepped using aseptic technique. Patient tolerated the procedure well. Primary Site: other (left greater trochanter) Approach Used: posterolateral Coding - Large joint Procedure code (CPT) selection complete Results Reviewed Results Reviewed: I personally reviewed relevant radiographs. Mild bilateral hip OA Assessment & Plan Assessment & Plan (1) Osteoarthritis of hips, bilateral: Code(s): M16.0 - Bilateral primary osteoarthritis of hip Plan: Mild-moderate hip OA with symptoms more attributable to poor mechanics. Symptoms not directly attributable to hip and as such I recommend treating with PT and referral to pain management. I injected her left greater trochanter. (2) Lumbosacral pain: Code(s): M54.50 - Low back pain, unspecified Plan Prepared for Javan Kamara MD by Cristopher Caceres, medical management specialist, on 09/29/23 at 1:32 PM, EST. Orders: Orders XR pelvis 1-2V 09/29/23 M25.559 - Pain in unspecified hip Referrals Pain Management Referral M16.0 - Bilateral primary osteoarthritis of hip, M54.50 - Low back pain, unspecified Coding Level of Care Code New Pt Level 4 (98998) Diagnoses Osteoarthritis of hips, bilateral M16.0 Lumbosacral pain M54.50 CPT Codes Coding - Large joint: 03395 - Large joint ([id number])
[2023-09-29 13:28] VITALS: BMI 27.3
== END 2023-09-29 13:49 | disposition home or self-care (01) ==
PROVIDERS: PCP Internal Medicine; Visit Provider Orthopaedic Surgery
DX: M16.0 Bilateral primary osteoarthritis of hip (principal); M54.50 Low back pain, unspecified
CPT/HCPCS: 20610; 99204

== ENCOUNTER 2023-12-05 13:27 | Outpatient (REF) | payer OTHER, SELFPAY ==
[2023-12-05 15:38] VITALS: BP 151/78; PULSE 68; RESP 16; TEMP 36.2; O2SAT 100; BMI 27.4
== END 2023-12-05 13:28 | disposition home or self-care (01) ==
LOC: HO.MS 13:27
PROVIDERS: PCP Internal Medicine; Visit Provider Ophthalmology
PROC: (CPT 66821; principal; 2023-12-05 15:00)
DX: H26.492 Other secondary cataract, left eye (principal)
CPT/HCPCS: 66821

== ENCOUNTER 2024-03-19 16:36 | Emergency (ER) | payer OTHER, SELFPAY ==
--- NOTE | ~2024-03-19 | XR_ITS ---
EXAMINATION: XR ANKLE, LEFT CLINICAL INFORMATION: Ankle COMPARISON: None available. TECHNIQUE: AP, lateral, and mortise views of the left ankle. FINDINGS: No fracture. Alignment is anatomic. No erosions. Joint spaces are maintained. Soft tissues are normal. XR/XR ankle LT min 3V IMPRESSION: No acute fracture or subluxation of the left ankle.
[2024-03-19 17:14] VITALS: BP 152/74; PULSE 82; RESP 16; TEMP 36.6; O2SAT 98; BMI 28.1
--- NOTE | 2024-03-19 17:17 | ED.LOWEXIN ---
HPI - Extremity Injury (Lower) General Chief Complaint: Extremity Injury, Lower Stated Complaint: twisted ankle in parking lot Time Seen by Provider: 03/19/24 18:28 Source: patient Mode of arrival: ambulatory Limitations: no limitations History of Present Illness ED Provider: Dr. Misty Herrera HPI Narrative: Patient comes to the emergency room complaining of left ankle pain. Patient states that she had just parked her car in our parking lot, was heading towards work, patient sprain her ankle. Patient states that she was trying to not come to the ED, but the swelling and the pain kept increasing throughout her shift. Patient states that it hurts bearing weight. But still able to do so. Patient denies any other injury. Related Data Home Medications ?Medication ?Instructions ?Recorded ?Confirmed naltrexone 8 mg-bupropion 90 mg 1 tab PO QAM 01/15/21 10/19/22 tablet,extended release (Contrave) omeprazole 20 mg capsule,delayed 20 mg PO DAILY PRN Acid Reflux 01/20/21 10/25/22 release Previous Rx's ?Medication ?Instructions ?Recorded acetaminophen 650 mg 650 mg PO Q12H 10 days #20 tabs 09/22/22 tablet,extended release (Mapap Arthritis Pain) Allergies Allergy/AdvReac Type Severity Reaction Status Date / Time No Known Allergies Allergy Verified 03/19/24 17:20 Review of Systems Review of Systems: Constitutional : No Weight loss, No Fever, No Chills, No Night Sweats, No Fatigue, No Malaise ENT/Mouth : No Hearing loss, No Ear Pain, No Nasal Congestion, No Sinus Pain, No Hoarseness, No sore throat, No Rhinorrhea, No Swallowing Difficulty Eyes: No Eye Pain, No Swelling, No Redness, No Foreign Body, No Discharge, No Vision Changes Cardiovascular : No Chest Pain, No SOB, No Dyspnea on Exertion, No Orthopnea, No Edema, No Palpitations Respiratory : No Cough, No Sputum, No Wheezing, No Smoke Exposure, No Dyspnea Gastrointestinal : No Nausea, No Vomiting, No Diarrhea, No Constipation, No abdominal Pain, No Hematochezia, No Melena Genitourinary : no irregular bleeding, No Dysuria, No Urinary Frequency, No Hematuria, No Urinary Incontinence, No Urgency, No Flank Pain, No Urinary Flow Changes, No Hesitancy Musculoskeletal : Complaining of left ankle pain, No Myalgias, No Joint Swelling Skin : No Skin Lesions, No rash Neuro : No Weakness, No Numbness, No Paresthesias, No Loss of Consciousness, No Dizziness, No Headache Psych : No Anxiety/Panic, No Depression, No SI/HI/AH/VH, No Social Issues, Heme/Lymph: No Bruising, No Bleeding,No Lymphadenopathy Endocrine : No Polyuria, No Polydipsia, No Temperature Intolerance PMF Past Medical History Medical History Breast mass Arthritis Back pain Scoliosis GERD (gastroesophageal reflux disease) Pre-op evaluation Surgical History Hx of right cataract extraction Hx of colonoscopy History of foot surgery Hx of thumb surgery Hx of repair of right rotator cuff History of partial hysterectomy Family History Family History Mother Breast cancer Father Stroke Social History Social History Housing: House Are you a primary home care manager rn to a significant other at home: No Do you presently have visiting nurse or other home services: No Alcohol intake: never Patient Tobacco Use Status: Never used Tobacco Tobacco use type: Cigarette service: No Current occupational status: employed Physical Exam Vital Signs: Vital Signs: Last Vital Signs Temp 97.8 F 03/19/24 17:14 Pulse 82 03/19/24 17:14 Resp 16 03/19/24 17:14 BP 152/74 H 03/19/24 17:14 Pulse Ox 98 03/19/24 17:14 O2 Del Method Room Air 03/19/24 17:14 BMI result Body Mass Index 28.1 Const: Other: Appearance: Alert. Oriented X3. No acute distress. Eyes: Pupils equal, round and reactive to light. ENT: Pharynx normal. Neck: Normal inspection. Neck supple. No lymph nodes noted. No crepitus CVS: Normal heart rate and rhythm. Pulses normal. Normal S1 and S2 Respiratory: No respiratory distress. Breath sounds normal. No Wheezing. No rales Abdomen: Soft and nontender. No rigidity. No distention. Skin: Skin warm and dry. Normal skin color. Normal skin turgor. Extremities: No lower extremity edema. Mild swelling along the left lateral malleolus, patient able to flex and extend the ankle. Neuro: Oriented X 3. No motor deficit. No sensory deficit. Moving all extremities. No slurred speech. CN 2 through 12 grossly intact Psych: calm, cooperative, normal affect Course Course Course Narrative: This is an RME: Additional HPI, ROS, PE not included below will be deferred to primary provider. RME assessment and note performed by: Remedios Vela PA-C This is a [id number]-female, with no known medical problems, who presents to the ER with a complaints of left ankle pain. Reporting that she rolled her left ankle in the parking lot here at [facility] while she was walking into work. Reporting she is unable to fully bear weight on her left leg d/t pain. Edema noted over left ankle, strong DP pulse. Plan: Xrays Medical Decision Making Medical Decision Making [facility] Narrative: -my interpretation of x-ray: Normal alignment, no obvious fracture -radiology report, no fracture Independent Interpretation I performed an independent interpretation of an: Plain X-Ray Radiology Impression Discussion of test interpretation with radiology: I have reviewed the radiologist's reading. Radiologist Impression: FINDINGS: No fracture. Alignment is anatomic. No erosions. Joint spaces are maintained. Soft tissues are normal. XR/XR ankle LT min 3V IMPRESSION: No acute fracture or subluxation of the left ankle. Discharge Plan Discharge Clinical Impression: Ankle sprain Patient Disposition: Home, Self-Care Instructions: Ankle Sprain (ED), R.I.C.E. Treatment (ED) Additional Instructions: Please follow-up with your primary care physician tomorrow. If you have any worsening or new symptoms, please return to the emergency room or call 911 Prescriptions: No Action acetaminophen [Mapap Arthritis Pain] 650 mg tablet extended release 650 mg PO Q12H 10 Days Qty: 20 0RF omeprazole 20 mg Capsule,Delayed Release(Dr/Ec) 20 mg PO DAILY PRN (Reason: Acid Reflux) Contrave 8-90 mg tablet extended release 1 tab PO QAM Referrals: Juvenal Koehler MD [Physician] - 03/22/24 Print Language: Lithuanian
[2024-03-19 18:00] VITALS: BP 122/71; PULSE 67; RESP 16; TEMP 36.7; O2SAT 99
[2024-03-19 19:01] VITALS: BP 122/71; PULSE 67; RESP 16; TEMP 36.7; O2SAT 99
== END 2024-03-19 19:04 | disposition home or self-care (01) ==
PROVIDERS: Emergency Provider Emergency Medicine; PCP Internal Medicine
DX: S93.402A Sprain of unspecified ligament of left ankle, initial encounter (principal); X50.1XXA Overexertion from prolonged static or awkward postures, initial encounter; Y93.01 Activity, walking, marching and hiking; Y92.89 Other specified places as the place of occurrence of the external cause; Y99.8 Other external cause status
CPT/HCPCS: 73610; 99283

== ENCOUNTER 2024-09-07 13:39 | Outpatient (REF) | payer OTHER, SELFPAY | END 2024-09-07 13:40 | disposition home or self-care (01) | LOC: HO.MAMMO 13:39 | PROVIDERS: PCP Internal Medicine; Visit Provider Internal Medicine | DX: Z12.31 Encounter for screening mammogram for malignant neoplasm of breast (principal) | CPT/HCPCS: 77063; 77067 ==

== ENCOUNTER → 2024-09-07 14:00 | Outpatient (BNV) | payer OTHER, SELFPAY | PROVIDERS: PCP Internal Medicine; Visit Provider Internal Medicine | DX: Z12.31 Encounter for screening mammogram for malignant neoplasm of breast (principal) | CPT/HCPCS: 77063; 77067 ==